=== PATIENT | male | born 1980 | race Caucasian/White ===

== ENCOUNTER 2017-02-13 19:35 | Emergency (ER) | payer MEDICAID ==
[~2017-02-13] VITALS: Ht 177.8 cm; Wt 87.1 kg
[2017-02-13 19:53] VITALS: BP_SYST 151; BP_SYST 98; BP_DIAS 52; BP_DIAS 93
--- NOTE | 2017-02-13 20:01 | NUR ---
TO ER OF2
--- NOTE | 2017-02-13 20:05 | NUR ---
PT BIB SELF C/O RIGHT LEG PAIN-HOT,RED, SWOLLEN-CAP REFILL-IMM X2 DAYS-PT WAS SEEN AT [facility] 2DAYS AGO FOR SAME S/S IVPB MEDS GIVEN-PT STS-I DIDNT LIKE THE STAFF AT [facility] SO I LEFT AMA. PT STS "IT WAS A MISSED HEROIN SHORT." PT DENIES N/V/D; SKIN IS INTACT, FLUSHED/HOT/DRY; AAOX4, PERRL, WITH EVEN AND STEADY GAIT; LUNGS CLEAR BL, BREATHING UNLABORED; HR EVEN AND REGULAR, BL PERIPHERAL PULSES PRESENT; BS ACTIVE X4, NO TENDERNESS TO PALPATION. PT DENIES ANY FEVER, CP, SOB, OR COUGH AT THIS TIME; PT STATES 8/10 PAIN AT THIS TIME; VSS; PATIENT POSITIONED FOR COMFORT; HOB ELEVATED; BEDRAILS UP X2; BED DOWN.
--- NOTE | 2017-02-13 21:12 | NUR ---
Patient being evaluated by physician.
--- NOTE | 2017-02-13 21:22 | NUR ---
Patient discharged with v/s stable. Written and verbal after care instructions given and explained. Patient alert, oriented and verbalized understanding of instructions. Ambulatory with steady gait. All questions addressed prior to discharge. ID band removed. Patient advised to follow up with PMD. Rx of CLINDAMYCIN given. Patient educated on indication of medication including possible reaction and side effects. Opportunity to ask questions provided and answered.
[2017-02-13 21:23] VITALS: BP 131/83
== END 2017-02-13 21:23 | disposition home or self-care (01) ==
LOC: MED 19:35
DX: L03.116 Cellulitis of left lower limb (principal)
CPT/HCPCS: 99283

== ENCOUNTER 2018-06-18 13:56 | Inpatient (IN) | payer MEDICAID ==
[~2018-06-18] VITALS: Ht 177.8 cm; Wt 85.7 kg
[2018-06-18 14:05] VITALS: BP 130/76
--- NOTE | 2018-06-18 14:22 | NUR ---
PT AMBULATED TO BED 04.
--- NOTE | 2018-06-18 14:27 | NUR ---
38/M BIB FRIEND C/O LEFT HAND INJURY X 1 WK AGO; PT STATES HE HAD A SMALL WOUND SIGNIFICANT SWELLING, REDNESS. LAST TETANUS 4 DAYS AGO IN [facility] BUT ELOPED BECAUSE "HE HAD TO LEAVE" HX--ASTHMA RX- NONE.
--- NOTE | 2018-06-18 14:27 | NUR ---
Note undone in [facility] - 06/18/18 at 1621 by [email or web address] 38/M MARISSA RAO C/O LEFT HAND INJURY X 1 WK AGO; PT STATES HE HAD A SMALL WOUND SIGNIFICANT SWELLING, REDNESS. LAST TETANUS 4 DAYS AGO IN [facility] BUT ELOPED BECAUSE "HE HAD TO LEAVE" HX--ASTHMA RX---ALBUTEROL Addendum: 06/18/18 at 1441 by [email or web address] Amendment undone in [facility] - 06/18/18 at 1621 by [email or web address] PT STATED HE WAS BITTEN BY HUMAN.
--- NOTE | 2018-06-18 14:28 | NUR ---
Patient being evaluated by physician at bedside.
[2018-06-18] MEDS ORDERED: NACL 0.9% 1,000 ML IV SCH (14:41)
[2018-06-18] MEDS ORDERED: PIPERACILLIN/TAZOBACTAM 3.375 GM in DEXTROSE 5% 50 ML IV ONE (14:45)
[2018-06-18] MEDS ORDERED: MORPHINE SULFATE 4 MG/ML SYR IVP ONE (14:45)
[2018-06-18 15:07] LABS: BASOPHILS # (AUTO) 0.1 K/uL (0.00-0.22); BASOPHILS % (AUTO) 0.3 % (0.0-2.0); EOSINOPHILS # (AUTO) 0.1 K/uL (0-0.4); EOSINOPHILS % (AUTO) 0.7 % (0.0-4.0); HEMATOCRIT 38.8 % (36-52); HEMOGLOBIN 12.7 g/dL (12.0-18.0); LYMPHOCYTES # (AUTO) 0.8 K/uL (2.0-11.5); LYMPHOCYTES % (AUTO) 4.1 % (20.5-51.1); MEAN CORPUSCULAR HEMOGLOBIN 28 pg (27-31); MEAN CORPUSCULAR HGB CONC 33 g/dL (33-37); MEAN CORPUSCULAR VOLUME 86.8 fL (80-94); MONOCYTES # (AUTO) 1.3 K/uL (0.8-1.0); MONOCYTES % (AUTO) 7.2 % (1.7-9.3); NEUTROPHILS # (AUTO) 16.4 K/uL (1.8-7.7); NEUTROPHILS % (AUTO) 87.7 % (42.2-75.2); PLATELET COUNT (AUTO) 292 K/uL (140-450); RED BLOOD CELL COUNT(AUTO) 4.47 MIL/uL (4.20-6.10); RED CELL DISTRIBUTION WIDTH 14.7 % (11.6-13.7); WHITE BLOOD COUNT (AUTO) 18.7 K/uL (4.8-10.8)
[2018-06-18] MEDS ORDERED: PIPERACILLIN/TAZOBACTAM 3.375 GM VIAL IV ONE ×2 (15:08→20:45)
[2018-06-18 15:19] LABS: ANION GAP 14.5 (8-16); CREATININE 0.9 mg/dL (0.7-1.3); POTASSIUM 3.5 mmol/L (3.5-5.1)
[2018-06-18 15:25] LABS: ALBUMIN 3.4 g/dL (3.4-5.0); TOTAL BILIRUBIN 0.5 mg/dL (0.0-1.0)
[2018-06-18 15:27] LABS: PROTHROMBIN TIME 10.6 secs (10.8-13.4)
[2018-06-18] MEDS ORDERED: ONDANSETRON 4 MG/2 ML VIAL IM/IVP PRN (15:40)
[2018-06-18] MEDS ORDERED: ACETAMINOPHEN 325 MG TAB PO PRN (15:40)
[2018-06-18] MEDS ORDERED: DOCUSATE SODIUM 100 MG GELCAP PO PRN (15:40)
--- NOTE | 2018-06-18 15:46 | NUR ---
Patient being reevaluated by dr webb at bedside.
[2018-06-18] MEDS: ACETAMINOPHEN 325 MG TAB PO ONE ×2 (16:06→16:09)
[2018-06-18] MEDS ORDERED: ACETAMINOPHEN 325 MG TAB ONE (16:09)
--- NOTE | 2018-06-18 16:28 | NUR ---
PT TAKEN TO TELE FLOOR BY TABATHA CONTEH AND EMT JONAH
--- NOTE | 2018-06-18 16:33 | NUR ---
Patient will be admitted to care of DR VIRAMONTES. Admited to TELE. Will go to room 112A. Belongings list completed. Report to AMANDA MAYS.
[2018-06-18 16:36] VITALS: BP 124/81
--- NOTE | 2018-06-18 16:45 | NUR ---
PATIENT ADMITTED TO THE UNIT FROM ER. PATIENT AWAKE, ALERT AND ORIENTED. LEFT HAND ERYTHEMA AND SWELLING NOTED. MINIMAL SEROUS DISCHARGE NOTED. PATIENT IS AMBULATORY. PATIENT REPORTS OF LEFT HAND PAIN 10/10. PATIENT WAS MEDICATED IN ER. WILL NOTIFY ADMITTING DR. BED LOWERED WITH CALL LIGHT WITHIN REACH. WILL CONTINUE TO MONITOR
[2018-06-18 17:12] LABS: CHOL/HDL RATIO 1.6 (1-4.5); FREE T4 (FREE THYROXINE) 1.11 ng/dL (0.76-1.46); MAGNESIUM 1.6 mg/dL (1.8-2.4); PHOSPHORUS 1.8 mg/dL (2.5-4.9); THYROID STIMULATING HORMONE 0.45 uIU/mL (0.34-3.74)
[2018-06-18] MEDS ORDERED: HYDROmorphone 1 MG/ML AMP ONE (17:13)
[2018-06-18] MEDS: NACL 0.9% 1,000 ML IV SCH (17:14)
[2018-06-18 17:58] LABS: APPEARANCE,URINE CLEAR (CLEAR); BILIRUBIN,URINE NEGATIVE (NEGATIVE); BLOOD, URINE NEGATIVE (NEGATIVE); COLOR,URINE YELLOW (YELLOW); LEUKOCYTE ESTERASE ,URINE NEGATIVE (NEGATIVE); NITRITE, URINE NEGATIVE (NEGATIVE); UGLUCOSE NEGATIVE (NEGATIVE)
[2018-06-18 18:00] LABS: BARBITURATE, URINE NEG. ng/ml (NEG <=200); BENZODIAZEPINE, URINE NEG. ng/mL (NEG <=200); CANNABINOID, URINE NEG. ng/mL (NEG <=50); COCAINE, URINE NEG. ng/mL (NEG <=300); OPIATE, URINE POS. ng/mL (NEG <=2000); PHENCYCLIDINE SCREEN,URINE NEG. ng/mL (NEG <=25)
[2018-06-18] MEDS ORDERED: MAGNESIUM OXIDE 400 MG TAB PO SCH (18:30)
[2018-06-18] MEDS ORDERED: HYDROmorphone 1 MG/ML AMP IVP SCH (18:30)
[2018-06-18] MEDS ORDERED: NEOMYCIN/POLYMYXIN/BACITRACIN 0.9 GM/1 PKT TP SCH (18:30)
--- NOTE | 2018-06-18 18:45 | NUR ---
URINE SAMPLE AND LEFT HAND WOUND CULTURE COLLECTED. PATIENT AWAKE IN BED. NO S/S OF DISTRESS NOTED
--- NOTE | 2018-06-18 19:29 | NUR ---
PATIENT REPORT GIVEN AT BEDSIDE. PATIENT ENDORSED IN STABLE CONDITION
--- NOTE | 2018-06-18 19:30 | NUR ---
RECEIVED PT IN STABLE CONDITION FROM AM NURSE. PT IN BED. UNDERGOING US VASCULAR ON THE LT HAND. AA/O X4. ON TELE MONITOR. WITH NO C/O ANY PAIN. LT HAND RED AND SWOLLEN. WITH IVF INFUSING WELL ON THE RT FA#[id number]. CLEAR AND PATENT. NO C/O PAIN AT THIS TIME. PLAN OF CARE DISCUSSED AND VERBALIZED UNDERSTANDING. BED ON LOWEST POSITION. CALL LIGHT AND URINAL WITHIN EASY REACH. WILL CONTINUE TO MONITOR.
[2018-06-18 19:55] VITALS: BP 124/64
[2018-06-18] MEDS: PIPER/TAZO 3.375GM/D5W PREMIX 50 ML IV SCH (20:51)
[2018-06-18] MEDS: MORPHINE SULFATE 4 MG/ML SYR IVP PRN (20:53)
[2018-06-18] MEDS ORDERED: SODIUM PHOS / POTASSIUM PHOS 1 PKT PDR PO SCH (21:00)
--- NOTE | 2018-06-18 21:53 | NUR ---
MADE ROUNDS. PT IS ASLEEP. NO S/S FO ANY PAIN NOTED.
--- NOTE | 2018-06-18 22:24 | NUR ---
MADE ROUNDS. PT SLEEPING. NO S/S OF ANY DISCOMFORT NOTED. FAMILY AT BEDSIDE.
[2018-06-18 23:50] VITALS: BP 112/63
--- NOTE | 2018-06-19 02:30 | NUR ---
MADE ROUNDS. PT IS ASLEEP. NO S/S OF A PAIN NOTED. FAMILY AT BEDSIDE.
[2018-06-19] MEDS: NACL 0.9% 1,000 ML IV SCH ×4 (02:50→18:02)
[2018-06-19 03:50] VITALS: BP 122/65
[2018-06-19] MEDS: MORPHINE SULFATE 4 MG/ML SYR IVP PRN ×3 (03:55→17:56)
[2018-06-19] MEDS ORDERED: PIPERACILLIN/TAZOBACTAM 3.375 GM VIAL IV ONE (04:36)
[2018-06-19] MEDS: PIPER/TAZO 3.375GM/D5W PREMIX 50 ML IV SCH ×3 (04:49→21:03)
--- NOTE | 2018-06-19 04:55 | NUR ---
MADE ROUNDS. PT IS ASLEEP. NO S/S OF ANY DISCOMFORT NOR PAIN NOTED. WILL CONTINUE TO MONITOR.
--- NOTE | 2018-06-19 06:30 | NUR ---
PT IS ASLEEP. NO S/S OF ANY DISCOMFORT NOR PAIN NOTED.
--- NOTE | 2018-06-19 07:25 | NUR ---
ENDORSED PT IN STABLE CONDITION TO AM NURSE.
--- NOTE | 2018-06-19 07:30 | NUR ---
RECEIVED PT FROM EUCLID OPERATOR NURSE, HANSA, PT IS AWAKE AND LYING ON THE BED WITH ON THE BEDSIDE, SIDE RAIL;S UP AND CALL LIGHT WITHIN REACH, PT HAS AN IV LINE ON RT FA G. 20 WITH NS AT 100ML/HR. PT VERBALIZED A PAIN RATE OF 5/10 ON THE LEFT HAND BUT PAIN MEDICATION IS NOT DUE YET. NO OTHER UNTOWARD SYMPTOMS NOTED AND WILL CONTINUE CYNTHIA ONITOR PT.
[2018-06-19 08:00] VITALS: BP 128/61
[2018-06-19] MEDS: SODIUM PHOS / POTASSIUM PHOS 1 PKT PDR PO SCH ×2 (08:59→16:47)
[2018-06-19] MEDS: MAGNESIUM OXIDE 400 MG TAB PO SCH (08:59)
--- NOTE | 2018-06-19 09:02 | NUR ---
PT IS AWAKE AND LYING ON THE BED, ORAL MEDICATIONS WERE GIVEN AND PT TOLERATED IT. NO SIGN OF DISTRESS NOTED AND WILL CONTINUE TO MONITOR PT.
--- NOTE | 2018-06-19 10:36 | NUR ---
PT'S HEART MONITOR WAS REMOVED NOW AND PT WAS TRANSFERRED TO [facility]. CARPET BINDER HAND ED TO CLAIMS SUPPORT SPECIALIST, CLAUS.
--- NOTE | 2018-06-19 10:58 | NUR ---
PT VERBALIZED A PAIN RATE OF 10/10 AND WILL MEDICATE PT.
--- NOTE | 2018-06-19 11:07 | NUR ---
PT MIS AWAKE AND LYING ON THE BED WITH ON THE BEDSIDE, PAIN MEDICATION GIVEN AND PT TOLERATED IT. VITAL SIGNS TAKEN PER PARAMETER, WILL RE-ASSESS PAIN AND MONITOR PT.
[2018-06-19 12:00] VITALS: BP 128/63
[2018-06-19] MEDS ORDERED: FUROSEMIDE 40 MG TAB PO ONE (12:00)
--- NOTE | 2018-06-19 13:10 | NUR ---
PT IS ASLEEP ON THE BED WITH ON THE BEDSIDE, IV ZOSYN WAS GIVEN VIA PIGGYBACK AND PT TOLERATED IT. NO SIGN OF DISTRESS NOTED AND WILL MONITOR PT
[2018-06-19 14:41] LABS: ANION GAP 8.9 (8-16); BASOPHILS % (AUTO) 0.4 % (0.0-2.0); CARBON DIOXIDE 24.5 mmol/L (21-32); CREATININE 1.1 mg/dL (0.7-1.3); EOSINOPHILS # (AUTO) 0.3 K/uL (0-0.4); EOSINOPHILS % (AUTO) 2.9 % (0.0-4.0); HEMATOCRIT 42.3 % (36-52); HEMOGLOBIN 13.7 g/dL (12.0-18.0); LYMPHOCYTES # (AUTO) 1.2 K/uL (2.0-11.5); LYMPHOCYTES % (AUTO) 10.6 % (20.5-51.1); MEAN CORPUSCULAR HEMOGLOBIN 29 pg (27-31); MEAN CORPUSCULAR HGB CONC 33 g/dL (33-37); MONOCYTES # (AUTO) 1.3 K/uL (0.8-1.0); MONOCYTES % (AUTO) 11.7 % (1.7-9.3); NEUTROPHILS # (AUTO) 8.6 K/uL (1.8-7.7); NEUTROPHILS % (AUTO) 74.4 % (42.2-75.2); PLATELET COUNT (AUTO) 247 K/uL (140-450); POTASSIUM 3.4 mmol/L (3.5-5.1); RED BLOOD CELL COUNT(AUTO) 4.81 MIL/uL (4.20-6.10); RED CELL DISTRIBUTION WIDTH 15.5 % (11.6-13.7); WHITE BLOOD COUNT (AUTO) 11.5 K/uL (4.8-10.8)
[2018-06-19 14:46] LABS: PHOSPHORUS 1.5 mg/dL (2.5-4.9)
[2018-06-19 16:00] VITALS: BP 111/51
--- NOTE | 2018-06-19 16:49 | NUR ---
PT IS AWAKE AND ORAL MEDICATION WAS GIVEN AND PT TOLERATED IT.
[2018-06-19] MEDS ORDERED: KCL 20 MEQ/WATER INJ PREMIX 100 ML IV ONE (18:50)
[2018-06-19] MEDS ORDERED: KCL 20 MEQ/WATER INJ PREMIX 100 ML IV SCH (19:00)
--- NOTE | 2018-06-19 19:27 | NUR ---
PT IS AWAKE AND ON THE BEDSIDE, POTASSIUM CHLORIDE WAS STARTED TO PT FOR A K LEVEL OF 3.4, VIA IVPB. WILL ENDORSE TO BUSINESS ANALYSIS SPECIALIST NURSE FOR MONITORING.
--- NOTE | 2018-06-19 19:30 | NUR ---
ENDORSED PT TO RUBBER CUTTER AND SHAPE CARVER NURSE, HANSA FOR CONTINUITY OF CARE, PT IS STABLE AT THIS TIME WITH KCL INFUSING.
--- NOTE | 2018-06-19 19:30 | NUR ---
RECEIVED PT IN STABLE CONDITION FROM AM NURSE. AWAKE, ALERT AND ORIENTED X4. MED SURG PT. WITH FAMILY AT BEDSIDE. NO C/O ANY PAIN NOR DISCOMFORT AT THIS TIME. LT HAND STILL SWOLLEN AND RED. NO DRAIN NOTED. PRINCESS. WITH IVF INFUSING WELL. PLAN OF CARE DISCUSSED AND VERBALIZED UNDERSTANDING. CALL LIGHT PLACED WITHIN REACH. BED ON LOW POSITION. WILL CONTINUE TO MONITOR.
--- NOTE | 2018-06-19 21:00 | NUR ---
ANTIBIOTICS GIVEN SCHEDULED. NO C/O ANY PAIN NOTED .
--- NOTE | 2018-06-19 23:00 | NUR ---
MADE ROUNDS. SLEEPING. NO S/S OF ANY DISCOMFORT NOR PAIN NOTED.
[2018-06-19 23:30] VITALS: BP 128/79
--- NOTE | 2018-06-20 02:00 | NUR ---
MADE ROUNDS. SLEEPING. NO S/S OF ANY DISCOMFORT NOTED.
[2018-06-20] MEDS: PIPER/TAZO 3.375GM/D5W PREMIX 50 ML IV SCH ×3 (04:39→21:24)
--- NOTE | 2018-06-20 05:00 | NUR ---
SLEEPING WELL. NO S/S OF ANY DISCOMFORT NOTED.
[2018-06-20] MEDS: NACL 0.9% 1,000 ML IV SCH ×3 (05:57→21:24)
--- NOTE | 2018-06-20 06:20 | NUR ---
AWAKE AND C/O PAIN MEDICATED ORDERED.
[2018-06-20] MEDS: MORPHINE SULFATE 4 MG/ML SYR IVP PRN ×3 (06:21→19:05)
--- NOTE | 2018-06-20 07:20 | NUR ---
ENDORSED PT IN STABLE CONDITION TO AM NURSE.
--- NOTE | 2018-06-20 07:21 | NUR ---
Received bedside report from pm nurse Carey. Pt asleep, respirations even & nonlabored, FLACC 0. Call light within reach. R forearm IV intact with ongoing NS @ 100ml/hr.
[2018-06-20 07:48] LABS: BASOPHILS % (AUTO) 0.5 % (0.0-2.0); EOSINOPHILS # (AUTO) 0.4 K/uL (0-0.4); EOSINOPHILS % (AUTO) 4.2 % (0.0-4.0); HEMATOCRIT 41.3 % (36-52); HEMOGLOBIN 13.6 g/dL (12.0-18.0); LYMPHOCYTES # (AUTO) 1.3 K/uL (2.0-11.5); LYMPHOCYTES % (AUTO) 14.3 % (20.5-51.1); MEAN CORPUSCULAR HEMOGLOBIN 29 pg (27-31); MEAN CORPUSCULAR HGB CONC 33 g/dL (33-37); MEAN CORPUSCULAR VOLUME 87.9 fL (80-94); MONOCYTES # (AUTO) 1.1 K/uL (0.8-1.0); MONOCYTES % (AUTO) 11.3 % (1.7-9.3); NEUTROPHILS # (AUTO) 6.5 K/uL (1.8-7.7); NEUTROPHILS % (AUTO) 69.7 % (42.2-75.2); PLATELET COUNT (AUTO) 258 K/uL (140-450); RED CELL DISTRIBUTION WIDTH 15.2 % (11.6-13.7); WHITE BLOOD COUNT (AUTO) 9.4 K/uL (4.8-10.8)
[2018-06-20 08:00] VITALS: BP 121/80
[2018-06-20 08:13] LABS: T4 (THYROXINE) 5.7 ug/dL (4.5-12.0)
--- NOTE | 2018-06-20 08:29 | NUR ---
PATIENT HAS BEEN SCREENED AND CATEGORIZED HIGH NUTRITION RISK. PATIENT WILL BE SEEN WITHIN 1-2 DAYS OF ADMISSION. 06/20/[address]
[2018-06-20 08:33] LABS: ANION GAP 8.9 (8-16); CARBON DIOXIDE 25.5 mmol/L (21-32); CREATININE 0.8 mg/dL (0.7-1.3); POTASSIUM 3.4 mmol/L (3.5-5.1)
[2018-06-20] MEDS: MAGNESIUM OXIDE 400 MG TAB PO SCH (08:56)
[2018-06-20] MEDS: SODIUM PHOS / POTASSIUM PHOS 1 PKT PDR PO SCH ×2 (08:56→17:11)
[2018-06-20] MEDS ORDERED: FUROSEMIDE 20 MG TAB PO SCH (09:00)
[2018-06-20] MEDS ORDERED: POTASSIUM CHLORIDE 10 MEQ TABER PO SCH ×2 (11:30)
--- NOTE | 2018-06-20 11:49 | NUR ---
Pt resting in bed, awake, no signs of distress, no c/o discomfort. Call light within reach.
--- NOTE | 2018-06-20 13:00 | NUR ---
06/20/18 RD INITIAL ASSESSMENT COMPLETED PLEASE REFER TO NUTRITION ASSESSMENT UNDER CARE ACTIVITY FOR ESTIMATED NUTRITIONAL NEEDS. 1. CONTINUE REGULAR DIET TOLERATED 2. RECOMMEND KIKI QD 3. RD TO FOLLOW-UP 5-7 DAYS, LOW RISK [address]
[2018-06-20] MEDS ORDERED: LACT10CA1 PO (13:12)
[2018-06-20] MEDS ORDERED: ACET-9526 PO (13:12)
[2018-06-20] MEDS ORDERED: SULF-58 PO (13:12)
[2018-06-20] MEDS: HYDROcodone/APAP 7.5/325 MG 1 TAB PO PRN ×2 (15:30→22:15)
[2018-06-20 16:00] VITALS: BP 113/79
--- NOTE | 2018-06-20 17:30 | NUR ---
Dr Richter at bedside assessing pt.
--- NOTE | 2018-06-20 19:15 | NUR ---
Report given to pm nurse Felix. Pt in bed, awake, no signs of distress.
--- NOTE | 2018-06-20 19:17 | NUR ---
RECEIVED PATIENT AWAKE LYING COMFORTABLE ON BED. PATIENT AAOX4, ABLE TO VERBALIZED HIS NEEDS. EXPLAINED PLAN OF CARE AND VERBALIZED UNDERSTANDING. BED IN LOW LOCKED POSITION, CALL LIGHT WITHIN REACH. RESPIRATION EVEN AND UNLABORED. IV SITE INFILTRATED WILL REINSERT LATER. WILL CONTINUE TO MONITOR.
--- NOTE | 2018-06-20 21:15 | NUR ---
IV REINSERTED AT RIGHT AC 20 G. SCHEDULE MEDICATION GIVEN TOLERATED WELL. WILL CONTINUE TO MONITOR.
[2018-06-21] VITALS: BP 125/77
--- NOTE | 2018-06-21 | NUR ---
V/S TAKEN AND RECORDED. SEEN PATIENT ASLEEP ON BED. NO S/S OF DISTRESS NOTED. CALL LIGHT WITHIN REACH. ALL NEEDS ATTENDED. WILL CONTINUE TO MONITOR.
[2018-06-21] MEDS: MORPHINE SULFATE 4 MG/ML SYR IVP PRN ×3 (00:42→13:47)
--- NOTE | 2018-06-21 02:00 | NUR ---
SEEN PATIENT ASLEEP. NO S/S OF DISTRESS NOTED. ALL NEEDS ATTENDED.
[2018-06-21] MEDS: PIPER/TAZO 3.375GM/D5W PREMIX 50 ML IV SCH ×3 (04:35→20:05)
--- NOTE | 2018-06-21 07:10 | NUR ---
Received report from pm nurse Felix. Pt resting in bed, c/o pain to L hand. Alie at bedside. Will administer pain med. Call light within reach.
[2018-06-21] MEDS: SODIUM PHOS / POTASSIUM PHOS 1 PKT PDR PO SCH (07:17)
[2018-06-21 08:00] VITALS: BP 121/77
[2018-06-21 08:32] LABS: MAGNESIUM 1.8 mg/dL (1.8-2.4); PHOSPHORUS 3.4 mg/dL (2.5-4.9)
[2018-06-21 08:40] LABS: BASOPHILS # (AUTO) 0.1 K/uL (0.00-0.22); BASOPHILS % (AUTO) 0.9 % (0.0-2.0); EOSINOPHILS # (AUTO) 0.6 K/uL (0-0.4); EOSINOPHILS % (AUTO) 6.8 % (0.0-4.0); HEMATOCRIT 40.5 % (36-52); HEMOGLOBIN 13.5 g/dL (12.0-18.0); LYMPHOCYTES # (AUTO) 1.9 K/uL (2.0-11.5); LYMPHOCYTES % (AUTO) 21.7 % (20.5-51.1); MEAN CORPUSCULAR HEMOGLOBIN 29 pg (27-31); MEAN CORPUSCULAR HGB CONC 33 g/dL (33-37); MEAN CORPUSCULAR VOLUME 87.2 fL (80-94); MONOCYTES # (AUTO) 0.7 K/uL (0.8-1.0); MONOCYTES % (AUTO) 8.2 % (1.7-9.3); NEUTROPHILS # (AUTO) 5.3 K/uL (1.8-7.7); NEUTROPHILS % (AUTO) 62.4 % (42.2-75.2); PLATELET COUNT (AUTO) 295 K/uL (140-450); RED BLOOD CELL COUNT(AUTO) 4.65 MIL/uL (4.20-6.10); RED CELL DISTRIBUTION WIDTH 15.2 % (11.6-13.7); WHITE BLOOD COUNT (AUTO) 8.6 K/uL (4.8-10.8)
--- NOTE | 2018-06-21 08:45 | NUR ---
Pt reports that L hand skin tear reopened & has pussy discharge. Site observed with small amt purulent discharge, swelling & redness present to surrounding tissue. Dr Sun notified, received order to obtain wound dx. Site cleaned with NS, patted dry, obtained swab specimen, & covered with bandaid.
[2018-06-21] MEDS: MAGNESIUM OXIDE 400 MG TAB PO SCH (08:59)
[2018-06-21] MEDS: LACTOBACILLUS RHAMNOSUS GG 1 EACH CAP PO SCH (08:59)
[2018-06-21] MEDS: HYDROcodone/APAP 7.5/325 MG 1 TAB PO PRN (08:59)
[2018-06-21 09:39] LABS: CARBON DIOXIDE 22.4 mmol/L (21-32); POTASSIUM 3.4 mmol/L (3.5-5.1)
[2018-06-21 09:40] LABS: CREATININE 0.7 mg/dL (0.7-1.3)
[2018-06-21] MEDS: NACL 0.9% 1,000 ML IV SCH (14:52)
--- NOTE | 2018-06-21 14:52 | NUR ---
Pt requesting to shower. Dr Sun at bedside states ok for pt to shower. Pt assisted to shower shower room, able to amb with steady gait. assisting pt.
--- NOTE | 2018-06-21 15:30 | NUR ---
Pt came back from shower. Left hand dressing changed. No c/o discomfort at this time. Call light within reach.
[2018-06-21 16:00] VITALS: BP 125/75
[2018-06-21] MEDS ORDERED: MORPHINE SULFATE 2 MG/ML SYR IVP PRN (17:15)
[2018-06-21] MEDS: HYDROcodone/APAP 10/325 MG 1 TAB TAB PO PRN ×2 (17:31→23:39)
--- NOTE | 2018-06-21 19:23 | NUR ---
Report given to pm nurse Wells. Pt dane.
--- NOTE | 2018-06-21 19:24 | NUR ---
REPORT RECEIVED FROM AM NURSE AT BEDSIDE. PT IN STABLE CONDITION. AAOX4. INTRODUCED SELF TO PT. BOARD UPDATED. NO COMPLAINTS OF PAIN. NO SOB. AFEBRILE. IV SITE R FA 20G RUNNING NS@100ML/HR PATENT AND INTACT. SKIN WARM, DRY, AND INTACT WITH NO OPEN WOUNDS. BED LOCKED IN LOW POSITION. CALL [place] WITHIN REACH. SAFETY PRECAUTIONS IN PLACE. ALL NEEDS MET AT THIS TIME.
--- NOTE | 2018-06-21 20:05 | NUR ---
CAROLYN HUNG AND RUNNING. PT TOLERATING WELL.
--- NOTE | 2018-06-21 20:16 | NUR ---
MORPHINE GIVEN FOR 7/10 PAIN. PT TOLERATED WELL.
--- NOTE | 2018-06-21 21:30 | NUR ---
PT SPOUSE AT BEDSIDE. EDUCATED HIM ON REASONS WHY HIS SPOUSE CANNOT STAY INCLUDING LEGALITY AND FAIRNESS TO PT'S ROOMMATE. PT STILL INSISTS THAT HIS SPOUSE STAYS SAYING THAT SHE HAD STAYED LAST NIGHT AND THERE WERE NO PROBLEMS. TOLD HIM THAT THE CHARGE NURSE WILL COME IN TO TALK TO THEM AND MAKE A DECISION ABOUT THEIR STAY.
--- NOTE | 2018-06-21 23:39 | NUR ---
NORCO GIVEN FOR 6/10 PAIN. PT TOLERATED WELL.
[2018-06-22] VITALS: BP 106/60
[2018-06-22] MEDS: NACL 0.9% 1,000 ML IV SCH (00:44)
--- NOTE | 2018-06-22 02:30 | NUR ---
PT SLEEPING COMFORTABLY IN BED. NO S/S OF DISTRESS NOTED. WILL CONTINUE TO MONITOR.
[2018-06-22] MEDS: PIPER/TAZO 3.375GM/D5W PREMIX 50 ML IV SCH (04:00)
--- NOTE | 2018-06-22 05:45 | NUR ---
PT SLEEPING COMFORTABLY BUT AROUSABLE. NO S/S OF DISTRESS NOTED. BREATHING EVEN, UNLABORED, AND WNL. WILL CONTINUE TO MONITOR.
--- NOTE | 2018-06-22 07:20 | NUR ---
REPORT GIVEN TO AM NURSE AT BEDSIDE. PT IN STABLE CONDITION.
--- NOTE | 2018-06-22 07:21 | NUR ---
RECEIVED BEDSIDE REPORT FROM TABATHA GUTIERREZ. PT STABLE, SLEEPING, BUT EASILY AROUSABLE. NO SIGNS OF DISTRESS NOTED. NO REDNESS, SWELLING, OR INFLAMMATION NOTED ON IV SITE. AT THE BEDSIDE. BED IN LOW POSITION. CALL LIGHT WITHIN REACH. SAFETY MEASURES IN PLACE. PLAN OF CARE REVIEWED.
[2018-06-22 08:00] VITALS: BP 146/71
[2018-06-22] MEDS: LACTOBACILLUS RHAMNOSUS GG 1 EACH CAP PO SCH (08:47)
[2018-06-22] MEDS: MAGNESIUM OXIDE 400 MG TAB PO SCH (08:48)
[2018-06-22] MEDS: HYDROcodone/APAP 10/325 MG 1 TAB TAB PO PRN (08:48)
--- NOTE | 2018-06-22 08:50 | NUR ---
ADMINISTERED SCHEDULED MEDICATIONS AND PRN NORCO FOR 7/10 LEFT HAND PAIN. PT TOLERATED WELL. NO OTHER NEEDS AT THIS TIME. AT THE BEDSIDE.
[2018-06-22] MEDS ORDERED: ACET-9526 PO (10:39)
--- NOTE | 2018-06-22 11:30 | NUR ---
PT STABLE, SLEEPING, BUT EASILY AROUSABLE. AT THE BEDSIDE. NO OTHER NEEDS AT THIS TIME.
--- NOTE | 2018-06-22 13:30 | NUR ---
WOUND ASSESSMENT DONE. PICTURES TAKEN FOR D/C.
--- NOTE | 2018-06-22 15:02 | NUR ---
PT BEING DISCHARGED BUT REFUSING WHEELCHAIR AT THIS TIME.
--- NOTE | 2018-06-22 15:07 | NUR ---
D/C INSTRUCTIONS AND PRESCRIPTION GIVEN. PT AND VERBALIZED UNDERSTANDING. QUESTIONS AND CONCERNS WERE ANSWERED. IV DISCONTINUED, CATHETER TIP INTACT, BLEEDING CONTROLLED. PT STABLE AND AMBULATORY. ESCORTED TO THE LOBBY WITH .
== END 2018-06-22 15:07 | disposition home or self-care (01) | DRG 720 ==
LOC: MED 13:56 → MTU 15:40
PROVIDERS: ADMIT General Practice; ATTEND General Practice
DX: A41.9 Sepsis, unspecified organism (principal); E83.39 Other disorders of phosphorus metabolism; E87.0 Hyperosmolality and hypernatremia; E83.42 Hypomagnesemia; L03.114 Cellulitis of left upper limb; E87.6 Hypokalemia; J45.909 Unspecified asthma, uncomplicated; S61.233A Puncture wound without foreign body of left middle finger without damage to nail, initial encounter; Y04.0XXA Assault by unarmed brawl or fight, initial encounter; E78.2 Mixed hyperlipidemia; Z88.6 Allergy status to analgesic agent; Y93.89 Activity, other specified; Y92.89 Other specified places as the place of occurrence of the external cause; Y99.8 Other external cause status
CPT/HCPCS: 36415; 71045; 73130; 76881; 80048; 80053; 80305; 81003; 82150; 83036; 83605; 83690; 83735; 83880; 84100; 84436; 84439; 84443; 84479; 84484; 85025; 85610; 85730; 87040; 87070; 87075; 87081; 87086; 87205; 90715; 93005; 96361; 96365; 96375; 99285; J1170; J2270; J2543; J3480; J7030; J7060; Q0092

== ENCOUNTER 2020-05-13 17:09 | Emergency (ER) | payer MEDICAID ==
[~2020-05-13] VITALS: Ht 177.8 cm; Wt 84.8 kg
[~2020-05-13 17:09] MED LIST: ACET-9526 PO; LACT10CA1 PO; SULF-58 PO
[2020-05-13 17:26] VITALS: BP 121/88
--- NOTE | 2020-05-13 19:15 | NUR ---
PATIENT LEFT WITHOUT BEING SEEN BY DR. canas. NO FURTHER CARE PROVIDED FOR PATIENT.
== END 2020-05-13 19:15 | disposition left against medical advice (07) ==
LOC: MED 17:09
DX: L02.414 Cutaneous abscess of left upper limb (principal); J45.909 Unspecified asthma, uncomplicated; Z88.6 Allergy status to analgesic agent; Z79.899 Other long term (current) drug therapy
CPT/HCPCS: 99281

== ENCOUNTER 2022-11-26 22:22 | Emergency (ER) | payer MEDICAID ==
[~2022-11-26] VITALS: Ht 175.3 cm; Wt 81.6 kg
[2022-11-26 22:30] VITALS: BP 152/90; PULSE 95; RESP 16; TEMP 97.6; O2SAT 93
--- NOTE | 2022-11-26 22:33 | NUR ---
TO LOBBY A/W BED AMBULATORY
--- NOTE | 2022-11-26 22:56 | NUR ---
CALLED IN LOBBY AND OUTSIDE NO ANSWER
--- NOTE | 2022-11-26 22:59 | NUR ---
CALLED IN LOBBY AND OUTSIDE NO ANSWER
== END 2022-11-26 23:02 | disposition left against medical advice (07) ==
LOC: MED 22:22
DX: R10.9 Unspecified abdominal pain (principal); Z53.21 Procedure and treatment not carried out due to patient leaving prior to being seen by health care provider
CPT/HCPCS: 99281

== ENCOUNTER 2023-02-26 19:42 | Emergency (ER) | payer MEDICAID ==
[~2023-02-26] VITALS: Ht 177.8 cm; Wt 81.6 kg
[2023-02-26 20:10] VITALS: BP 117/60; PULSE 68; RESP 16; TEMP 97.9; O2SAT 96
[2023-02-26 22:48] LABS: APPEARANCE,URINE CLEAR (CLEAR); BILIRUBIN,URINE NEGATIVE (NEGATIVE); BLOOD, URINE NEGATIVE (NEGATIVE); COLOR,URINE YELLOW (YELLOW); LEUKOCYTE ESTERASE ,URINE NEGATIVE (NEGATIVE); NITRITE, URINE NEGATIVE (NEGATIVE); PH,URINE 5.5 (5.0-9.0); PROTEIN,URINE TRACE (NEGATIVE); UGLUCOSE NEGATIVE (NEGATIVE); UROBILINOGEN,URINE 0.2 EU/dL (0.2 - 1)
[2023-02-26 23:07] LABS: BACTERIA,URINE OCCASSIONAL /HPF (None Seen); MUCUS,URINE 2+ /LPF (None Seen); RBC,URINE 0-5 /HPF (0-5); SQUAMOUS EPITHELIAL CELL,UR 0-3 (FEW) /LPF (0-3 (FEW)); WBC,URINE 0-5 /HPF (0-5)
== END 2023-02-26 22:20 | disposition left against medical advice (07) ==
LOC: MED 19:42
DX: Z11.3 Encounter for screening for infections with a predominantly sexual mode of transmission (principal); Z53.21 Procedure and treatment not carried out due to patient leaving prior to being seen by health care provider
CPT/HCPCS: 81001; 87491; 99281

== ENCOUNTER 2023-02-27 00:32 | Emergency (ER) | payer MEDICAID ==
[~2023-02-27] VITALS: Ht 177.8 cm; Wt 81.6 kg
[2023-02-27 00:40] VITALS: BP 108/68; PULSE 104; RESP 16; TEMP 97.7; O2SAT 98
[2023-02-27 03:13] VITALS: TEMP 97.8
[2023-02-27 03:55] VITALS: BP 111/63; PULSE 73; RESP 14; O2SAT 96
== END 2023-02-27 03:55 | disposition home or self-care (01) ==
LOC: MED 00:32
DX: Z11.3 Encounter for screening for infections with a predominantly sexual mode of transmission (principal); J45.909 Unspecified asthma, uncomplicated; Z98.890 Other specified postprocedural states; Z79.899 Other long term (current) drug therapy; Z79.2 Long term (current) use of antibiotics; Z88.6 Allergy status to analgesic agent
CPT/HCPCS: 86592; 99283

== ENCOUNTER 2023-12-17 10:37 | Emergency (ER) | payer MEDICAID, OTHER ==
[~2023-12-17] VITALS: Ht 177.8 cm; Wt 87.6 kg
[2023-12-17 10:45] VITALS: BP 114/58; PULSE 76; RESP 18; TEMP 97.3; O2SAT 97
[2023-12-17 12:02] LABS: HIV RAPID SCREEN NON-REACTIVE (NON REACTIV)
[2023-12-17 12:03] LABS: RAPID PLASMA REAGIN NON-REACTIVE (Non Reactiv)
[2023-12-17 12:29] LABS: APPEARANCE,URINE CLEAR (CLEAR); BILIRUBIN,URINE NEGATIVE (NEGATIVE); BLOOD, URINE NEGATIVE (NEGATIVE); COLOR,URINE YELLOW (YELLOW); LEUKOCYTE ESTERASE ,URINE NEGATIVE (NEGATIVE); NITRITE, URINE POSITIVE (NEGATIVE); PROTEIN,URINE TRACE (NEGATIVE); UGLUCOSE NEGATIVE (NEGATIVE)
[2023-12-17 12:43] LABS: BACTERIA,URINE FEW /HPF (None Seen); MUCUS,URINE None Seen /LPF (None Seen); RBC,URINE 0-5 /HPF (0-5); SQUAMOUS EPITHELIAL CELL,UR 0-3 (FEW) /LPF (0-3 (FEW)); TRICHOMONAS,URINE None Seen /HPF (None Seen); WBC,URINE 0-5 /HPF (0-5); WHITE BLOOD CELL CASTS,URINE None Seen /LPF (None Seen); YEAST,URINE None Seen /HPF (None Seen)
[2023-12-17 14:40] VITALS: BP 134/75; PULSE 74; RESP 20; TEMP 97.3; O2SAT 99
== END 2023-12-17 14:41 | disposition home or self-care (01) ==
LOC: MED 10:37
DX: Z11.3 Encounter for screening for infections with a predominantly sexual mode of transmission (principal); J45.909 Unspecified asthma, uncomplicated; F15.90 Other stimulant use, unspecified, uncomplicated; F11.90 Opioid use, unspecified, uncomplicated; Z98.890 Other specified postprocedural states; Z79.899 Other long term (current) drug therapy; Z88.6 Allergy status to analgesic agent
CPT/HCPCS: 81001; 86592; 87491; 99283